=== PATIENT | male | born 1945 | race Caucasian/White ===

== ENCOUNTER → 2017-07-22 | Outpatient (CLI) | payer MEDICARE, OTHER | END | disposition home or self-care (01) | LOC: PCVCIMAG 10:07 | DX: R00.2 Palpitations (principal); R94.31 Abnormal electrocardiogram [ECG] [EKG]; I10 Essential (primary) hypertension; E78.5 Hyperlipidemia, unspecified | CPT/HCPCS: 93325; 93351 ==

== ENCOUNTER → 2019-04-23 | Outpatient (CLI) | payer MEDICARE, OTHER | END | disposition home or self-care (01) | LOC: PCVCCLINIC 15:53 | PROVIDERS: ATTEND Internal Medicine | DX: E78.5 Hyperlipidemia, unspecified (principal); I10 Essential (primary) hypertension; Z72.89 Other problems related to lifestyle | CPT/HCPCS: 36415; 80061 ==

== ENCOUNTER → 2019-05-27 | Outpatient (CLI) | payer MEDICARE, OTHER ==
--- NOTE | 2019-05-27 09:34 | PCVCIMAG ---
EXAM: BILATERAL CAROTID DUPLEX INDICATION: Carotid Occlusive Disease. FINDINGS: Doppler Measurements (centimeters per second): RIGHT: Peak CCA-57, Peak ECA-108, Diastolic ICA-18, Peak ICA-70, ICA/CCA Ratio-1.2. LEFT: Peak CCA-72, Peak ECA-123, Diastolic ICA-14, Peak ICA-75, ICA/CCA Ratio-1.0. RIGHT CAROTID: The carotid bulb has mild plaque. The proximal internal carotid artery shows <40% stenosis. The common carotid artery shows no significant stenosis. The external carotid artery shows no significant stenosis. LEFT CAROTID: The carotid bulb has mild plaque. The proximal internal carotid artery shows <40% stenosis. The common carotid artery shows no significant stenosis. The external carotid artery shows no significant stenosis. Antegrade flow in both vertebral arteries. IMPRESSION: <40% stenosis of the right internal carotid artery with mild plaque. <40% stenosis of the left internal carotid artery with mild plaque. LOC:[place] [id number]
--- NOTE | 2019-05-27 12:42 | PCVCIMAG ---
APPROVED REPORT Study performed: 05/27/2019 07:42:43 EXAM: Comprehensive 2D, Doppler, and color-flow Echocardiogram Patient Location: Echo lab Status: routine BSA: 2.12 HR: 57 bpmBP: 148/70 mmHg Rhythm: Bradycardia w/ PVCs Other Information Study Quality: Adequate Indications Pre-Op Dyspnea CAD PVCs 2D Dimensions IVSd: 15.27 (7-11mm) LVDd: 57.27 mm PWd: 12.69 (7-11mm)Ascending Ao: 41.26 (22-36mm) LVDs: 43.18 (25-40mm) Left Atrium: 54.87 (27-40mm) Aortic Root: 34.45 mm LV Single Plane 4CH: 59.08 % LV Single Plane 2CH: 69.58 % Biplane EF: 63.5 % Volumes Left Atrial Volume (Systole) Single Plane 4CH: 94.98 mLSingle Plane 2CH: 100.53 mL LA ESV Index: 47.00 mL/m2 Aortic Valve AoV Peak Riaz.: 1.32 m/s AO Peak Gr.: 7.74 mmHgLVOT Max P.90 mmHg LVOT Max V: 1.00 m/s Mitral Valve E/A Ratio: 1.3 MV Decel. Time: 298.01 ms MV E Max Riaz.: 0.70 m/s MV A Riaz.: 0.52 m/s Pulmonary Valve PV Peak Riaz.: 1.28 m/sPV Peak Gr.: 7.37 mmHg Pulmonary Vein P Vein S: 0.68 m/sP Vein A: 0.34 m/s P Vein D: 0.73 m/sP Vein A Dur.: 138.4 msec P Vein S/D Ratio: 0.93 Tricuspid Valve TR Peak Riaz.: 2.75 m/s TR Peak Gr.: 30.48 mmHg Left Ventricle The left ventricle is normal size. There is normal LV segmental wall motion. Mild to moderate concentric left ventricular hypertrophy. The left ventricular systolic function is normal. The left ventricular ejection fraction is within the normal range. LVEF is 60%. This study is not technically sufficient to allow evaluation of the LV diastolic function due to PVCs. Right Ventricle The right ventricle is normal size. The right ventricular systolic function is normal. Atria Left atrium is moderately dilated. The right atrium size is normal. Aortic Valve Mild aortic valve sclerosis. Mild aortic regurgitation. There is no aortic valvular stenosis. Mitral Valve The mitral valve is normal in structure. Mild mitral regurgitation. No evidence of mitral valve stenosis. Tricuspid Valve The tricuspid valve is normal in structure. Mild tricuspid regurgitation with PAP of 37 mmHg. Pulmonic Valve The pulmonary valve is normal in structure. Mild pulmonic regurgitation. Great Vessels The aortic root is normal in size. Ascending aorta is dilated to 4.1 cm. IVC is normal in size and collapses >50% with inspiration. Pericardium There is no pericardial effusion. There is no pleural effusion. <Conclusion> The left ventricle is normal size. LVEF is 60%. Left atrium is moderately dilated. Mild aortic valve sclerosis. Mild aortic regurgitation. The mitral valve is normal in structure. Mild mitral regurgitation. The tricuspid valve is normal in structure. Mild tricuspid regurgitation with PAP of 37 mmHg. The pulmonary valve is normal in structure. Mild pulmonic regurgitation. There is no pericardial effusion. Ascending aorta is dilated to 4.1 cm.
== END | disposition home or self-care (01) ==
LOC: PCVCIMAG 08:30
PROVIDERS: ATTEND Internal Medicine
DX: I08.8 Other rheumatic multiple valve diseases (principal); I65.23 Occlusion and stenosis of bilateral carotid arteries; I25.10 Atherosclerotic heart disease of native coronary artery without angina pectoris; I49.3 Ventricular premature depolarization; I73.9 Peripheral vascular disease, unspecified; E78.5 Hyperlipidemia, unspecified; I10 Essential (primary) hypertension; R00.2 Palpitations; Z72.89 Other problems related to lifestyle
CPT/HCPCS: 93306; 93880